=== PATIENT | male | born 1950 | race Caucasian/White ===

== ENCOUNTER 2016-03-29 12:33 | Observation (INO) | payer OTHER ==
[~2016-03-29] VITALS: Ht 182.9 cm; Wt 91.3 kg
[~2016-03-29 12:33] MED LIST: ACETAMINOPHEN325 M1 PO; ALLOPURINOL100 MG PO; AMBIEN10 MG PO; AMLODIPINE BESYL5 MG; AMLODIPINE BESYL5 MG PO; ASPIR 8181 M1 PO; ASPIR-LOW81 MG PO; ASPIR-TRIN325 M1 PO; ASPIRIN325 MG PO; ASPIRIN81 M1 PO; ATHENOL325 MG PO; ATORVASTATIN CA20 MG PO; ATORVASTATIN CA80 MG PO; BICALUTAMIDE50 M1 PO; CALCIO DEL MAR500 MG PO; CLOBETASOL PROP60 GM TP; CLOPIDOGREL75 MG; CLOPIDOGREL75 MG PO; COLCRYS0.6 MG PO; COUMADIN1 MG PO; CRESTOR40 MG PO; CYANOCOBALAM1000 MCG PO; DAYTIME NIGHTT PO; DESYREL 150 MG150 MG PO; DESYREL100 MG; DULCOLAX10 MG PR; Desyrel PO; Dulcolax PO; ESCITALOPRAM OX20 MG; ESCITALOPRAM OX20 MG PO; Ecotrin PO; FLEET MINERAL133 ML PR; Fioricet,Esgic,Repan PO; GLIPIZIDE XL10 MG; GLIPIZIDE XL10 MG PO; GLIPIZIDE10 M1 PO; GLIPIZIDE10 MG PO; GLUCOPHAGE500 MG PO; GLUCOTROL XL10 MG PO; Glucotrol PO; HYDRALAZINE HCL50 MG PO; IMDUR60 MG PO; INSULIN ASPART PROTAMINE SC; INSULIN ASPART SC; ISOSORB MONO TAB 60M; ISOSORBIDE MONO60 MG PO; JANUVIA100 MG PO; KEFLEX500 MG PO; KENALOG,ARISTOC80 GM TP; LANTUS 3 M100 UNITS1 SC; LASIX20 MG PO; LEVEMIR FL100 UNIT/1 SC; LEVEMIR FL100 UNITS/ SC; LEVEMIR100 UNIT/2 SC; LEXAPRO20 MG PO; LIDOCAINE700 MG TD; LIPITOR20 MG PO; LISINOPRIL10 MG PO; LISINOPRIL20 MG PO; LISINOPRIL40 MG; LISINOPRIL40 MG PO; LITE COAT ASPI325 M1 PO; LO-DOSE ASPIRIN81 M1 PO; LOPRESSOR100 M1 PO; LOPRESSOR50 MG PO; LYRICA75 MG PO; Lexapro PO; Lopressor PO; METFORMIN HCL1000 MG PO; METOPROLOL SUC100 MG PO; METOPROLOL SUCC50 MG PO; METOPROLOL TAR100 MG; METOPROLOL TAR100 MG PO; METOPROLOL TART50 MG PO; MILK OF MAGN PO; MYCOSTATIN15 GM PO; NEURONTIN300 MG PO; NITROGLYCERIN 2% TD; NITROSTAT,NITR0.4 M1 SL; NITROSTAT0.4 MG SL; NORVASC10 MG PO; NORVASC5 MG PO; NOVOLIN,HU100 UNITS/ SC; NOVOLOG 70/30 SC; NOVOLOG MI100 UNIT/2 SQ; NOVOLOG MI100 UNIT/M; NOVOLOG MI100 UNIT/M PO; NOVOLOG MI100 UNIT/M SC; NOVOLOG PE100 UNITS/ SC; NYSTATIN15 GM TP; Oyst-Cal D, Oscal W/ PO; PANTOPRAZOLE SO20 MG PO; PANTOPRAZOLE SO40 MG; PANTOPRAZOLE SO40 MG PO; PLAVIX75 MG PO; PRAVACHOL80 MG PO; PRAVASTATIN SOD80 MG PO; PREDNISONE10 MG PO; PRINIVIL10 MG PO; PRINIVIL20 MG PO; PRINIVIL40 MG PO; PROTONIX20 MG PO; PROTONIX40 MG PO; Protonix PO; REQUIP1 MG PO; ROBITUSSIN DM118 ML PO; ROPINIROLE HCL1 MG; ROPINIROLE HCL1 MG PO; SENOKOT S,PE1 TABLET PO; THERAGRAN1 TABLET PO; TOPROL XL100 MG PO; TRADJENTA5 MG PO; TRAMADOL HCL50 MG PO; TRAZODONE HCL100 MG PO; TRAZODONE HCL150 MG PO; TRAZODONE HCL300 MG PO; TRAZODONE HCL50 MG PO; TRICOR145 MG PO; Tums PO; Tylenol Regular Stre PO; ULORIC40 MG PO; ULTRAM50 MG PO; WARFARIN SODIU7.5 MG PO; WARFARIN SODIUM4 MG PO; XIFAXAN550 MG PO; ZESTRIL,PRINIVI40 MG PO; ZESTRIL20 MG PO; Zestril,Prinivil PO
[2016-03-29 13:40] LABS: HEMATOCRIT 43.3 % (38.0-50.0); MCH 28.9 PG (29.0-34.0); MCHC 33.3 G/DL (30.0-36.0); MCV 86.9 FL (86-99); MEAN PLAT.VOLUME 9.9 uM^3 (9.0-12.4); PLATELET COUNT 197 K/uL (156-360); RBC DIS.WIDTH-CV 15.1 % (11.8-14.6); RBC DIS.WIDTH-SD 47.9 % (39-53); RED BLOOD COUNT 4.98 M/uL (4.00-5.50)
[2016-03-29 13:41] LABS: WHITE BLOOD COUNT 11.8 K/uL (4.1-10.2)
[2016-03-29 13:54] LABS: CHLORIDE 98 mEq/L (99-109); POTASSIUM 4.2 mEq/L (3.7-5.4); SODIUM 139 mEq/L (136-147)
[2016-03-29 13:55] LABS: GLUCOSE 254 mg/dL (70-99)
[2016-03-29 13:57] LABS: ANION GAP 13 MEQ/L (2-14)
[2016-03-29 13:59] LABS: GFR ESTIMATE (CALCULATED) > 59 mL/min/
[2016-03-29 14:00] LABS: UREA NITROGEN (BUN) 17 mg/dL (9-23)
[2016-03-29 14:07] LABS: TROP-I INTERPRETATION NEGATIVE; TROPONIN-I < 0.01 ng/mL (0.0-0.30)
[2016-03-29 18:15] VITALS: BP 141/75
[2016-03-29 18:38] LABS: INFLUENZA A VIRAL ANTIGEN NEGATIVE; INFLUENZA B VIRAL ANTIGEN NEGATIVE
[2016-03-29 20:46] VITALS: BP 107/65
[2016-03-29 21:14] LABS: INTER. NORMALIZED RATIO 1.1; PROTHROMBIN TIME 11.2 (9.2-11.2)
[2016-03-29 22:31] LABS: TROP-I INTERPRETATION NEGATIVE; TROPONIN-I < 0.01 ng/mL (0.0-0.30)
[2016-03-30] VITALS (7 sets, daily range): BP systolic 121–189; BP diastolic 63–91
[2016-03-30 05:57] LABS: HEMATOCRIT 40.6 % (38.0-50.0); MCH 29.1 PG (29.0-34.0); MCV 88.3 FL (86-99); PLATELET COUNT 154 K/uL (156-360); RBC DIS.WIDTH-CV 15.3 % (11.8-14.6); RBC DIS.WIDTH-SD 49.4 % (39-53); WHITE BLOOD COUNT 9.6 K/uL (4.1-10.2)
[2016-03-30 06:15] LABS: INTER. NORMALIZED RATIO 1.1; PROTHROMBIN TIME 11.3 (9.2-11.2)
[2016-03-30 06:21] LABS: TROP-I INTERPRETATION NEGATIVE; TROPONIN-I < 0.01 ng/mL (0.0-0.30)
[2016-03-30 06:26] LABS: ANION GAP 11 MEQ/L (2-14); CHLORIDE 99 MEQ/L (99-109); GFR ESTIMATE (CALCULATED) > 59 mL/min/; GLUCOSE 197 mg/dL (70-99); POTASSIUM 3.6 MEQ/L (3.7-5.4); SAMPLE HEMOLYSIS CHECK 0; SAMPLE ICTERIC CHECK 0; SAMPLE LIPEMIA CHECK 0; SODIUM 138 MEQ/L (136-147); URIC ACID 8.8 mg/dL (3.1-9.2)
[2016-03-30 06:27] LABS: UREA NITROGEN (BUN) 29 mg/dL (9-23)
[2016-03-30 12:41] LABS: POINT-OF-CARE METER ID UU13113831; POINT-OF-CARE USER ID HCCJMZ81
[2016-03-30 13:09] LABS: TROP-I INTERPRETATION NEGATIVE; TROPONIN-I < 0.01 ng/mL (0.0-0.30)
[2016-03-30 15:56] LABS: Estimated Average Glucose 166 mg/dL (70-123); HEMOGLOBIN A1c (GLYCOHEMOGLOB) 7.4 % HGB (Below 5.7)
[2016-03-30 17:57] LABS: POINT-OF-CARE METER ID UU14162513
[2016-03-30 18:26] LABS: TROP-I INTERPRETATION NEGATIVE; TROPONIN-I < 0.01 ng/mL (0.0-0.30)
[2016-03-30 22:39] LABS: ADD MIUA? YES; BILIRUBIN NEGATIVE; BLOOD MODERATE; COLOR YELLOW ((YELLOW)); GLUCOSE (STRIP) 100; KETONES NEGATIVE; LEUKOCYTES NEGATIVE; NITRITE NEGATIVE; PH, URINE 5.5 (5-8); PROTEIN (STRIP) 100; SPECIFIC GRAVITY 1.022 (1.000-1.030)
[2016-03-30 22:39] LABS: POINT-OF-CARE METER ID UU14162513
[2016-03-30 22:42] LABS: BACTERIA NONE SEEN; CASTS NONE SEEN /LPF; CRYSTALS NONE SEEN; EPITHELIAL CELLS RARE; MUCUS NONE SEEN; PATHOLOGICAL CAST NONE SEEN; RED BLOOD CELLS 0-5 /HPF (0-5); SMALL ROUND CELL NONE SEEN; UCUL ADDED? NO; WHITE BLOOD CELLS 0-5 /HPF (0-5); YEAST-LIKE CELL NONE SEEN
[2016-03-31] VITALS (8 sets, daily range): BP systolic 160–205; BP diastolic 70–95
[2016-03-31 06:39] LABS: INTER. NORMALIZED RATIO 1.1; PROTHROMBIN TIME 11.7 (9.2-11.2)
[2016-03-31 06:48] LABS: ANION GAP 12 MEQ/L (2-14); CHLORIDE 96 MEQ/L (99-109); GFR ESTIMATE (CALCULATED) > 59 mL/min/; GLUCOSE 164 mg/dL (70-99); POTASSIUM 3.7 MEQ/L (3.7-5.4); SAMPLE HEMOLYSIS CHECK 0; SAMPLE ICTERIC CHECK 0; SAMPLE LIPEMIA CHECK 0; SODIUM 139 MEQ/L (136-147); UREA NITROGEN (BUN) 19 mg/dL (9-23)
[2016-03-31 08:19] LABS: URIC ACID 8.2 mg/dL (3.1-9.2)
[2016-03-31 08:59] LABS: POINT-OF-CARE METER ID UU14162513
[2016-03-31 12:34] LABS: POINT-OF-CARE METER ID UU14162513
[2016-03-31 17:48] LABS: POINT-OF-CARE METER ID UU14162513
[2016-03-31 21:56] LABS: POINT-OF-CARE METER ID UU14162513
[2016-04-01 05:22] VITALS: BP 174/72
[2016-04-01 07:03] LABS: INTER. NORMALIZED RATIO 1.3
[2016-04-01 07:43] LABS: POINT-OF-CARE METER ID UU13113831
[2016-04-01 08:12] VITALS: BP 178/88
[2016-04-01 11:46] VITALS: BP 165/78
[2016-04-01 16:17] VITALS: BP 165/85
[2016-04-01 17:31] LABS: POINT-OF-CARE METER ID UU13113831
[2016-04-01 19:36] VITALS: BP 160/84
[2016-04-01 21:28] LABS: POINT-OF-CARE METER ID UU13113700
[2016-04-02 00:12] VITALS: BP 140/76
[2016-04-02 04:34] VITALS: BP 138/79
[2016-04-02 06:16] LABS: INTER. NORMALIZED RATIO 1.6; PROTHROMBIN TIME 16.1 (9.2-11.2)
[2016-04-02 06:49] LABS: ANION GAP 8 MEQ/L (2-14); CHLORIDE 99 MEQ/L (99-109); GFR ESTIMATE (CALCULATED) > 59 mL/min/; SAMPLE HEMOLYSIS CHECK 0; SAMPLE ICTERIC CHECK 0; SAMPLE LIPEMIA CHECK 0; SODIUM 137 MEQ/L (136-147)
[2016-04-02 07:04] LABS: GLUCOSE 269 mg/dL (70-99); UREA NITROGEN (BUN) 35 mg/dL (9-23)
[2016-04-02 08:00] VITALS: BP 181/81
[2016-04-02 12:00] VITALS: BP 133/94
[2016-04-02 16:00] VITALS: BP 180/81
[2016-04-02 21:05] LABS: POINT-OF-CARE METER ID UU13113700
[2016-04-02 21:29] VITALS: BP 151/80
[2016-04-03] VITALS (9 sets, daily range): BP systolic 132–188; BP diastolic 70–103
[2016-04-03 07:14] LABS: PROTHROMBIN TIME 20.7 (9.2-11.2)
[2016-04-03 08:53] LABS: POINT-OF-CARE METER ID UU13113831
[2016-04-03 12:37] LABS: POINT-OF-CARE METER ID UU14162513
[2016-04-03 17:26] LABS: POINT-OF-CARE METER ID UU14162513
[2016-04-03 21:53] LABS: POINT-OF-CARE METER ID UU14162513
[2016-04-04 04:15] VITALS: BP 132/68
[2016-04-04 06:25] LABS: INTER. NORMALIZED RATIO 1.9; PROTHROMBIN TIME 19.7 (9.2-11.2)
[2016-04-04 06:40] LABS: ANION GAP 9 MEQ/L (2-14); CHLORIDE 100 MEQ/L (99-109); GFR ESTIMATE (CALCULATED) > 59 mL/min/; GLUCOSE 212 mg/dL (70-99); POTASSIUM 3.9 MEQ/L (3.7-5.4); SAMPLE HEMOLYSIS CHECK 0; SAMPLE ICTERIC CHECK 0; SAMPLE LIPEMIA CHECK 0; SODIUM 138 MEQ/L (136-147); UREA NITROGEN (BUN) 30 mg/dL (9-23)
[2016-04-04 08:17] VITALS: BP 193/90
[2016-04-04 08:47] VITALS: BP 158/74
[2016-04-04 10:02] LABS: POINT-OF-CARE METER ID UU13113700
[2016-04-04 12:26] VITALS: BP 125/76
[2016-04-04 12:35] LABS: POINT-OF-CARE METER ID UU13113700
[2016-04-04] MEDS ORDERED: Colchicine,Colcrys PO (14:49)
[2016-04-04] MEDS ORDERED: LYRICA75 MG PO (14:49)
[2016-04-04] MEDS ORDERED: ROPINIROLE HCL0.5 MG PO (14:49)
[2016-04-04] MEDS ORDERED: LEVEMIR100 UNIT/2 SC (14:49)
[2016-04-04] MEDS ORDERED: NOVOLOG PE100 UNITS/ SC (14:49)
[2016-04-04] MEDS ORDERED: TRAZODONE HCL50 MG PO (14:49)
[2016-04-04] MEDS ORDERED: GABAPENTIN100 MG PO (14:49)
[2016-04-04] MEDS ORDERED: COUMADIN2 MG PO (14:49)
[2016-04-04] MEDS ORDERED: LISINOPRIL10 MG PO (14:49)
[2016-04-04] MEDS ORDERED: ASPIR-LOW81 MG PO (14:49)
[2016-04-04] MEDS ORDERED: IMDUR30 MG PO (14:49)
[2016-04-04] MEDS ORDERED: LOPRESSOR50 MG PO (14:49)
[2016-04-04] MEDS ORDERED: ATORVASTATIN CA80 MG PO (14:49)
[2016-04-04] MEDS ORDERED: NITROSTAT0.4 MG SL (14:49)
[2016-04-04] MEDS ORDERED: CLOPIDOGREL75 MG PO (14:49)
[2016-04-04 16:03] VITALS: BP 143/68
[2016-04-04 16:26] LABS: POINT-OF-CARE METER ID UU14162513
== END 2016-04-04 18:20 ==
LOC: EME 12:33 → 5WEST 15:41 → EDOF 15:41 → 5WEST 18:01
PROVIDERS: Hospitalist; Internal Medicine; Internal Medicine Cardiovascular Disease; Nurse Practitioner Adult Health; Physician Assistant Medical; Specialist
PROC: 3E0U33Z Introduction of Anti-inflammatory into Joints, Percutaneous Approach (ICD-10-PCS; principal; 2016-03-31)
PROC: 0S9D3ZX Drainage of Left Knee Joint, Percutaneous Approach, Diagnostic (ICD-10-PCS; principal; 2016-03-31)
DX: R07.2 Precordial pain (principal); M62.81 Muscle weakness (generalized); M25.562 Pain in left knee; M25.462 Effusion, left knee; M10.9 Gout, unspecified; E78.2 Mixed hyperlipidemia; I25.10 Atherosclerotic heart disease of native coronary artery without angina pectoris; Z95.1 Presence of aortocoronary bypass graft; R94.31 Abnormal electrocardiogram [ECG] [EKG]; I10 Essential (primary) hypertension; E11.9 Type 2 diabetes mellitus without complications; Z79.4 Long term (current) use of insulin; Z86.73 Personal history of transient ischemic attack (TIA), and cerebral infarction without residual deficits; I48.0 Paroxysmal atrial fibrillation; D72.829 Elevated white blood cell count, unspecified; M17.12 Unilateral primary osteoarthritis, left knee; Z79.01 Long term (current) use of anticoagulants; Z91.19 Patient's noncompliance with other medical treatment and regimen
CPT/HCPCS: 70450; 71020; 73564; 80048; 81003; 82948; 83036; 84484; 84550; 85027; 85610; 87502; 93005; 97530 GO; 97530 GP; 99281; 99285; G0378; G8978 CL; G8979 CJ; G8980 GP CK; G8987 GO CJ; G8988 CI; G8989 CJ; J0360; J1815; J2270; J2405

== ENCOUNTER 2016-08-04 23:11 | Emergency (ER) | payer OTHER ==
[~2016-08-04] VITALS: Ht 182.9 cm; Wt 105.2 kg
[~2016-08-04 23:11] MED LIST changes: +COUMADIN2 MG PO; +Colchicine,Colcrys PO; +GABAPENTIN100 MG PO; +IMDUR30 MG PO; +ROPINIROLE HCL0.5 MG PO
[2016-08-04 23:49] LABS: HEMATOCRIT 45.2 % (38.0-50.0); MCH 28.2 PG (29.0-34.0); MCHC 32.3 G/DL (30.0-36.0); MCV 87.4 FL (86-99); MEAN PLAT.VOLUME 8.9 uM^3 (9.0-12.4); PLATELET COUNT 180 K/uL (156-360); RBC DIS.WIDTH-CV 13.7 % (11.8-14.6); RED BLOOD COUNT 5.17 M/uL (4.00-5.50)
[2016-08-05 00:01] LABS: PROTHROMBIN TIME 10.6 (9.2-11.2); PTT 26.1 (25-32)
[2016-08-05 00:02] LABS: CHLORIDE 100 mEq/L (99-109); POTASSIUM 3.8 mEq/L (3.7-5.4); SODIUM 140 mEq/L (136-147)
[2016-08-05 00:04] LABS: GLUCOSE 97 mg/dL (70-99)
[2016-08-05 00:06] LABS: ANION GAP 11 MEQ/L (2-14)
[2016-08-05 00:08] LABS: GFR ESTIMATE (CALCULATED) > 59 mL/min/
[2016-08-05 00:09] LABS: UREA NITROGEN (BUN) 24 mg/dL (9-23)
[2016-08-05 00:12] LABS: TROP-I INTERPRETATION NEGATIVE; TROPONIN-I < 0.01 ng/mL (0.0-0.30)
[2016-08-05 00:15] LABS: ADD MIUA? YES; BILIRUBIN NEGATIVE; BLOOD MODERATE; COLOR YELLOW ((YELLOW)); GLUCOSE (STRIP) NEGATIVE; KETONES NEGATIVE; LEUKOCYTES NEGATIVE; NITRITE NEGATIVE; PROTEIN (STRIP) >=500; SPECIFIC GRAVITY 1.013 (1.000-1.030); UROBILINOGEN 0.2 MG/DL (0.2-1.0)
[2016-08-05 00:21] LABS: BACTERIA NONE SEEN /HPF; EPITHELIAL CELLS RARE /HPF; MUCUS NONE SEEN /LPF; RED BLOOD CELLS 0-5 /HPF (0-5); UCUL ADDED? NO; WHITE BLOOD CELLS 0-5 /HPF (0-5)
[2016-08-05 05:09] VITALS: BP 153/88
== END 2016-08-05 05:13 | disposition home or self-care (01) ==
LOC: EME → EDBD 23:11 → EME 08-05 05:13
PROVIDERS: Emergency Medicine
DX: S00.93XA Contusion of unspecified part of head, initial encounter (principal); W01.10XA Fall on same level from slipping, tripping and stumbling with subsequent striking against unspecified object, initial encounter; M54.9 Dorsalgia, unspecified; Z86.73 Personal history of transient ischemic attack (TIA), and cerebral infarction without residual deficits; I11.0 Hypertensive heart disease with heart failure; I50.9 Heart failure, unspecified; E11.9 Type 2 diabetes mellitus without complications; J44.9 Chronic obstructive pulmonary disease, unspecified; E78.5 Hyperlipidemia, unspecified; I25.2 Old myocardial infarction; K21.9 Gastro-esophageal reflux disease without esophagitis; F32.9 Major depressive disorder, single episode, unspecified; Z85.46 Personal history of malignant neoplasm of prostate; Z95.1 Presence of aortocoronary bypass graft; R31.9 Hematuria, unspecified; R53.1 Weakness; R42 Dizziness and giddiness
CPT/HCPCS: 70450; 72125; 80048; 81003; 84484; 85027; 85610; 85730; 93005; 99281; 99285

== ENCOUNTER 2016-08-24 13:09 | Emergency (ER) | payer OTHER ==
[~2016-08-24] VITALS: Ht 182.9 cm; Wt 105.1 kg
[2016-08-24 14:48] LABS: HEMATOCRIT 47.3 % (38.0-50.0); MCH 27.2 PG (29.0-34.0); MCHC 31.1 G/DL (30.0-36.0); MCV 87.4 FL (86-99); MEAN PLAT.VOLUME 9.2 uM^3 (9.0-12.4); PLATELET COUNT 161 K/uL (156-360); RBC DIS.WIDTH-SD 44.6 % (39-53); RED BLOOD COUNT 5.41 M/uL (4.00-5.50); WHITE BLOOD COUNT 7.3 K/uL (4.1-10.2)
[2016-08-24 14:58] LABS: CHLORIDE 105 mEq/L (99-109); POTASSIUM 4.1 mEq/L (3.7-5.4); SODIUM 142 mEq/L (136-147)
[2016-08-24 14:59] LABS: GLUCOSE 184 mg/dL (70-99)
[2016-08-24 15:01] LABS: PROTHROMBIN TIME 10.6 (9.2-11.2); PTT 25.5 (25-32)
[2016-08-24 15:01] LABS: ANION GAP 8 MEQ/L (2-14)
[2016-08-24 15:03] LABS: GFR ESTIMATE (CALCULATED) > 59 mL/min/
[2016-08-24 15:04] LABS: UREA NITROGEN (BUN) 16 mg/dL (9-23)
[2016-08-24 15:07] LABS: TROP-I INTERPRETATION NEGATIVE; TROPONIN-I < 0.01 ng/mL (0.0-0.30)
[2016-08-24 15:50] LABS: TOTAL BILIRUBIN 0.5 mg/dL (0.0-1.0)
[2016-08-24 15:51] LABS: ALKALINE PHOSPHATASE 59 IU/L (3-129)
[2016-08-24 15:53] LABS: DIRECT BILIRUBIN 0.2 mg/dL (0.0-0.3)
[2016-08-24 15:55] LABS: LIPASE 51 U/L (1.0-51.0)
[2016-08-24 18:15] VITALS: BP 187/93
== END 2016-08-24 18:33 | disposition home or self-care (01) ==
LOC: EME → EDBD 13:09 → EME 13:09
PROVIDERS: Emergency Medicine
DX: E86.0 Dehydration (principal); R55 Syncope and collapse; R10.9 Unspecified abdominal pain; I25.2 Old myocardial infarction; Z86.73 Personal history of transient ischemic attack (TIA), and cerebral infarction without residual deficits; Z95.1 Presence of aortocoronary bypass graft
CPT/HCPCS: 71020; 74176; 80048; 80076; 83690; 83880; 84484; 85027; 85610; 85730; 93005; 99281; 99285

== ENCOUNTER 2016-10-06 20:30 | Observation (INO) | payer OTHER ==
[~2016-10-06] VITALS: Ht 182.9 cm; Wt 104.4 kg
[2016-10-06 21:42] LABS: HEMATOCRIT 43.8 % (38.0-50.0); MCHC 32.4 G/DL (30.0-36.0); MCV 83.4 FL (86-99); MEAN PLAT.VOLUME 9.1 uM^3 (9.0-12.4); PLATELET COUNT 155 K/uL (156-360); RBC DIS.WIDTH-CV 14.3 % (11.8-14.6); RBC DIS.WIDTH-SD 43.2 % (39-53); RED BLOOD COUNT 5.25 M/uL (4.00-5.50); WHITE BLOOD COUNT 8.1 K/uL (4.1-10.2)
[2016-10-06 21:53] LABS: CHLORIDE 101 mEq/L (99-109); POTASSIUM 4.3 mEq/L (3.7-5.4)
[2016-10-06 21:54] LABS: SODIUM 139 mEq/L (136-147)
[2016-10-06 21:55] LABS: GLUCOSE 235 mg/dL (70-99)
[2016-10-06 21:57] LABS: ANION GAP 9 MEQ/L (2-14)
[2016-10-06 21:59] LABS: GFR ESTIMATE (CALCULATED) > 59 mL/min/
[2016-10-06 22:00] LABS: UREA NITROGEN (BUN) 19 mg/dL (9-23)
[2016-10-06 22:04] LABS: TROP-I INTERPRETATION NEGATIVE; TROPONIN-I < 0.01 ng/mL (0.0-0.30)
[2016-10-07] MEDS ORDERED: ISOSORBIDE MONO60 MG PO (00:22)
[2016-10-07] MEDS ORDERED: PRAVASTATIN SOD80 MG PO (00:22)
[2016-10-07] MEDS ORDERED: METOPROLOL TAR100 MG PO (00:22)
[2016-10-07] MEDS ORDERED: PLAVIX75 MG PO (00:22)
[2016-10-07] MEDS ORDERED: LO-DOSE ASPIRIN81 M2 PO (00:23)
[2016-10-07] MEDS ORDERED: REQUIP1 MG PO (00:23)
[2016-10-07] MEDS ORDERED: TRAZODONE HCL150 MG PO (00:23)
[2016-10-07] MEDS ORDERED: LISINOPRIL20 MG PO (00:23)
[2016-10-07] MEDS ORDERED: LANTUS 3 M100 UNITS1 SC (00:24)
[2016-10-07] MEDS ORDERED: TRADJENTA5 MG PO (00:25)
[2016-10-07] MEDS ORDERED: PROTONIX40 MG PO (00:25)
[2016-10-07] MEDS ORDERED: LEXAPRO20 MG PO (00:25)
[2016-10-07 04:33] VITALS: BP 166/72
[2016-10-07 06:04] LABS: HEMATOCRIT 42.5 % (38.0-50.0); MCH 26.6 PG (29.0-34.0); MCHC 31.8 G/DL (30.0-36.0); MCV 83.7 FL (86-99); MEAN PLAT.VOLUME 9.2 uM^3 (9.0-12.4); PLATELET COUNT 148 K/uL (156-360); RBC DIS.WIDTH-CV 14.3 % (11.8-14.6); RBC DIS.WIDTH-SD 43.5 % (39-53); RED BLOOD COUNT 5.08 M/uL (4.00-5.50)
[2016-10-07 06:34] LABS: TROP-I INTERPRETATION NEGATIVE; TROPONIN-I 0.02 ng/mL (0.0-0.30)
[2016-10-07 06:38] LABS: ALKALINE PHOSPHATASE 67 IU/L (3-129); ANION GAP 7 MEQ/L (2-14); CHLORIDE 100 MEQ/L (99-109); GFR ESTIMATE (CALCULATED) > 59 mL/min/; GLUCOSE 253 mg/dL (70-99); POTASSIUM 4.1 MEQ/L (3.7-5.4); SAMPLE HEMOLYSIS CHECK 0; SAMPLE ICTERIC CHECK 0; SAMPLE LIPEMIA CHECK 0; SODIUM 141 MEQ/L (136-147); TOTAL BILIRUBIN 0.5 MG/DL (0.0-1.0); UREA NITROGEN (BUN) 19 mg/dL (9-23)
[2016-10-07 09:00] VITALS: BP 193/93
[2016-10-07 11:07] LABS: SALICYLATE < 3.0 MG/DL (15-30)
[2016-10-07 11:30] LABS: TROP-I INTERPRETATION NEGATIVE; TROPONIN-I 0.02 ng/mL (0.0-0.30)
[2016-10-07 13:12] VITALS: BP 151/84
[2016-10-07 13:34] LABS: ADD MIUA? YES; BILIRUBIN NEGATIVE; BLOOD SMALL; COLOR YELLOW ((YELLOW)); GLUCOSE (STRIP) 150; KETONES NEGATIVE; LEUKOCYTES NEGATIVE; NITRITE NEGATIVE; PROTEIN (STRIP) 100; SPECIFIC GRAVITY 1.018 (1.000-1.030); UROBILINOGEN 0.2 MG/DL (0.2-1.0)
[2016-10-07 13:52] LABS: RED BLOOD CELLS 0-5 /HPF (0-5); WHITE BLOOD CELLS 0-5 /HPF (0-5)
[2016-10-07 13:53] LABS: BACTERIA NONE SEEN /HPF; EPITHELIAL CELLS NONE SEEN /HPF; MUCUS NONE SEEN /LPF; UCUL ADDED? NO
[2016-10-07 14:03] LABS: AMPHETAMINES QUANT VALUE 0 NG/ML; BARBITUATES QUANT VALUE 0 NG/ML; BENZODIAZEPINES QUANT VALUE 0 NG/ML; BENZODIAZEPINES, URINE SCREEN Negative (200 ng/mL); MARIJUANA QUANT VALUE 0 NG/ML; OPIATES QUANTITATIVE VALUE 0 NG/ML; PHENCYCLIDINE QUANT VALUE 0 NG/ML
[2016-10-07 15:59] VITALS: BP 194/89
[2016-10-07 17:30] LABS: POINT-OF-CARE METER ID UU14162513
[2016-10-07 17:57] VITALS: BP 191/91
[2016-10-07 19:52] VITALS: BP 174/80
[2016-10-07 20:58] LABS: POINT-OF-CARE METER ID UU13113700
[2016-10-08 00:03] VITALS: BP 170/78
[2016-10-08 05:00] VITALS: BP 166/70
[2016-10-08 05:53] LABS: BASOPHIL COUNT 0.1 K/uL (0-0.1); EOSINOPHIL (%) 1.3 % (0-5); EOSINOPHIL COUNT 0.1 K/uL (0-0.3); IMMATURE GRANULOCYTE (%) 0.6 % (0.0-0.7); LYMPHOCYTE COUNT 2.3 K/uL (1.0-2.8); MCH 27.1 PG (29.0-34.0); MCHC 32.1 G/DL (30.0-36.0); MCV 84.5 FL (86-99); MEAN PLAT.VOLUME 9.4 uM^3 (9.0-12.4); MONOCYTE COUNT 0.7 K/uL (0-0.8); PLATELET COUNT 160 K/uL (156-360); RBC DIS.WIDTH-CV 14.7 % (11.8-14.6); RBC DIS.WIDTH-SD 44.8 % (39-53); RED BLOOD COUNT 5.09 M/uL (4.00-5.50); WHITE BLOOD COUNT 6.2 K/uL (4.1-10.2)
[2016-10-08 06:14] LABS: ANION GAP 9 MEQ/L (2-14); CHLORIDE 99 MEQ/L (99-109); GFR ESTIMATE (CALCULATED) > 59 mL/min/; GLUCOSE 164 mg/dL (70-99); POTASSIUM 3.8 MEQ/L (3.7-5.4); SAMPLE HEMOLYSIS CHECK 0; SAMPLE ICTERIC CHECK 0; SAMPLE LIPEMIA CHECK 0; SODIUM 140 MEQ/L (136-147); UREA NITROGEN (BUN) 19 mg/dL (9-23)
[2016-10-08 08:45] VITALS: BP 162/86
[2016-10-08 11:23] VITALS: BP 132/69
[2016-10-08 15:38] VITALS: BP 153/77
[2016-10-08 19:30] VITALS: BP 175/82
[2016-10-08 21:34] LABS: POINT-OF-CARE METER ID UU14162513
[2016-10-09 00:03] VITALS: BP 198/91
[2016-10-09 03:55] VITALS: BP 189/88
[2016-10-09 05:12] VITALS: BP 137/80
[2016-10-09 05:41] LABS: EOSINOPHIL (%) 0.6 % (0-5); EOSINOPHIL COUNT 0.1 K/uL (0-0.3); HEMATOCRIT 46.3 % (38.0-50.0); IMMATURE GRANULOCYTE (%) 0.5 % (0.0-0.7); IMMATURE GRANULOCYTE COUNT 0.1 K/uL; INSTRUMENT ABS NEUTROPHIL CT 6.1 K/uL; LYMPHOCYTE COUNT 2.4 K/uL (1.0-2.8); MCH 26.4 PG (29.0-34.0); MCHC 31.5 G/DL (30.0-36.0); MCV 83.6 FL (86-99); MEAN PLAT.VOLUME 9.3 uM^3 (9.0-12.4); MONOCYTE (%) 8.7 % (3-12); MONOCYTE COUNT 0.8 K/uL (0-0.8); NEUTROPHIL (%) 64.9 % (45-76); NEUTROPHIL COUNT 6.1 K/uL (1.8-6.4); PLATELET COUNT 170 K/uL (156-360); RBC DIS.WIDTH-CV 14.7 % (11.8-14.6); RBC DIS.WIDTH-SD 44.6 % (39-53); RED BLOOD COUNT 5.54 M/uL (4.00-5.50); WHITE BLOOD COUNT 9.5 K/uL (4.1-10.2)
[2016-10-09 06:14] LABS: ANION GAP 9 MEQ/L (2-14); CHLORIDE 99 MEQ/L (99-109); POTASSIUM 3.8 MEQ/L (3.7-5.4); SAMPLE HEMOLYSIS CHECK 0; SAMPLE ICTERIC CHECK 0; SAMPLE LIPEMIA CHECK 0; SODIUM 137 MEQ/L (136-147)
[2016-10-09 06:19] LABS: GFR ESTIMATE (CALCULATED) > 59 mL/min/; GLUCOSE 177 mg/dL (70-99); UREA NITROGEN (BUN) 18 mg/dL (9-23)
[2016-10-09 07:10] VITALS: BP 159/72
[2016-10-09 11:49] LABS: POINT-OF-CARE METER ID UU13113700
[2016-10-09 17:16] LABS: POINT-OF-CARE METER ID UU13113700
[2016-10-09 20:00] VITALS: BP 162/80
[2016-10-09 22:19] LABS: POINT-OF-CARE METER ID UU13113700
[2016-10-10 04:11] VITALS: BP 141/77
[2016-10-10 06:03] LABS: EOSINOPHIL COUNT 0.1 K/uL (0-0.3); HEMATOCRIT 44.5 % (38.0-50.0); IMMATURE GRANULOCYTE (%) 0.5 % (0.0-0.7); INSTRUMENT ABS NEUTROPHIL CT 4.3 K/uL; LYMPHOCYTE COUNT 2.6 K/uL (1.0-2.8); MCH 26.8 PG (29.0-34.0); MCHC 31.7 G/DL (30.0-36.0); MCV 84.6 FL (86-99); MEAN PLAT.VOLUME 9.1 uM^3 (9.0-12.4); MONOCYTE (%) 11.6 % (3-12); MONOCYTE COUNT 0.9 K/uL (0-0.8); NEUTROPHIL (%) 53.6 % (45-76); NEUTROPHIL COUNT 4.3 K/uL (1.8-6.4); PLATELET COUNT 150 K/uL (156-360); RBC DIS.WIDTH-SD 45.5 % (39-53); RED BLOOD COUNT 5.26 M/uL (4.00-5.50)
[2016-10-10 06:33] LABS: ANION GAP 8 MEQ/L (2-14); CHLORIDE 100 MEQ/L (99-109); GFR ESTIMATE (CALCULATED) > 59 mL/min/; GLUCOSE 197 mg/dL (70-99); POTASSIUM 3.8 MEQ/L (3.7-5.4); SAMPLE HEMOLYSIS CHECK 0; SAMPLE ICTERIC CHECK 0; SAMPLE LIPEMIA CHECK 0; SODIUM 141 MEQ/L (136-147); UREA NITROGEN (BUN) 23 mg/dL (9-23)
[2016-10-10 08:02] LABS: POINT-OF-CARE METER ID UU13113700
[2016-10-10 08:04] VITALS: BP 168/100
[2016-10-10 12:04] VITALS: BP 159/76
[2016-10-10] MEDS ORDERED: ELIQUIS5 MG PO (12:05)
== END 2016-10-10 15:06 ==
LOC: EME 20:30 → 5WEST 10-07 02:52 → EDOF 10-07 02:52 → 5WEST 10-07 04:00
PROVIDERS: Family Medicine; Internal Medicine
DX: R07.9 Chest pain, unspecified (principal); I48.0 Paroxysmal atrial fibrillation; E78.5 Hyperlipidemia, unspecified; Z86.73 Personal history of transient ischemic attack (TIA), and cerebral infarction without residual deficits; E11.9 Type 2 diabetes mellitus without complications; I25.10 Atherosclerotic heart disease of native coronary artery without angina pectoris; Z95.1 Presence of aortocoronary bypass graft; R41.0 Disorientation, unspecified; R94.31 Abnormal electrocardiogram [ECG] [EKG]; T45.516A Underdosing of anticoagulants, initial encounter; Z91.128 Patient's intentional underdosing of medication regimen for other reason; Z82.49 Family history of ischemic heart disease and other diseases of the circulatory system; I71.2 Thoracic aortic aneurysm, without rupture; I10 Essential (primary) hypertension; J44.9 Chronic obstructive pulmonary disease, unspecified; G47.33 Obstructive sleep apnea (adult) (pediatric); R63.3 Feeding difficulties; I25.2 Old myocardial infarction
CPT/HCPCS: 70450; 71020; 80048; 80053; 80306 90; 81003; 82140; 82607; 82746; 82948; 84443; 84484; 85025; 85027; 93005; 99281; 99285; G0378; G0480; G8978 GP CJ; G8979 GP CH; G8987 GO CJ; G8988 GO CH; J0360; J1650; J1815

== ENCOUNTER → 2016-11-06 | Outpatient (CLI) | payer OTHER ==
[~2016-11-06] MED LIST changes: +ELIQUIS5 MG PO; +LO-DOSE ASPIRIN81 M2 PO
== END | disposition home or self-care (01) ==
LOC: RAD 09:58
DX: G93.89 Other specified disorders of brain (principal)
CPT/HCPCS: 70450

== ENCOUNTER 2016-12-08 14:25 | Emergency (ER) | payer OTHER ==
[~2016-12-08] VITALS: Ht 182.9 cm; Wt 105.5 kg
[2016-12-08 15:37] LABS: ADD MIUA? YES; BILIRUBIN NEGATIVE; BLOOD SMALL; COLOR YELLOW ((YELLOW)); GLUCOSE (STRIP) 50; KETONES NEGATIVE; LEUKOCYTES NEGATIVE; NITRITE NEGATIVE; PROTEIN (STRIP) >=500; SPECIFIC GRAVITY 1.023 (1.000-1.030); UROBILINOGEN 0.2 MG/DL (0.2-1.0)
[2016-12-08 15:52] LABS: BACTERIA NONE SEEN /HPF; EPITHELIAL CELLS RARE /HPF; HYALINE CASTS TNTC /LPF; MUCUS TRACE /LPF; WHITE BLOOD CELLS 0-5 /HPF (0-5); WHITE BLOOD CELLS CLUMP RARE /HPF (0-5)
[2016-12-08 16:00] LABS: HEMATOCRIT 43.7 % (38.0-50.0); MCH 26.9 PG (29.0-34.0); MCHC 31.4 G/DL (30.0-36.0); MCV 85.9 FL (86-99); MEAN PLAT.VOLUME 9.4 uM^3 (9.0-12.4); PLATELET COUNT 173 K/uL (156-360); RBC DIS.WIDTH-SD 46.9 % (39-53); RED BLOOD COUNT 5.09 M/uL (4.00-5.50); WHITE BLOOD COUNT 7.5 K/uL (4.1-10.2)
[2016-12-08 16:16] LABS: CHLORIDE 101 mEq/L (99-109); POTASSIUM 4.3 mEq/L (3.7-5.4); SODIUM 139 mEq/L (136-147)
[2016-12-08 16:18] LABS: GLUCOSE 282 mg/dL (70-99)
[2016-12-08 16:20] LABS: ANION GAP 10 MEQ/L (2-14); TOTAL BILIRUBIN 0.4 mg/dL (0.0-1.0)
[2016-12-08 16:22] LABS: ALKALINE PHOSPHATASE 81 IU/L (3-129); GFR ESTIMATE (CALCULATED) > 59 mL/min/
[2016-12-08 16:23] LABS: UREA NITROGEN (BUN) 21 mg/dL (9-23)
[2016-12-08 19:13] VITALS: BP 149/83
== END 2016-12-08 19:14 | disposition home or self-care (01) ==
LOC: EME 14:25
PROVIDERS: Physician Assistant
DX: R10.30 Lower abdominal pain, unspecified (principal); I10 Essential (primary) hypertension; K21.9 Gastro-esophageal reflux disease without esophagitis; J44.9 Chronic obstructive pulmonary disease, unspecified; E78.5 Hyperlipidemia, unspecified; E11.9 Type 2 diabetes mellitus without complications; I25.2 Old myocardial infarction; Z85.528 Personal history of other malignant neoplasm of kidney; Z85.46 Personal history of malignant neoplasm of prostate; Z85.038 Personal history of other malignant neoplasm of large intestine; Z86.73 Personal history of transient ischemic attack (TIA), and cerebral infarction without residual deficits; Z79.4 Long term (current) use of insulin; Z79.82 Long term (current) use of aspirin; Z95.1 Presence of aortocoronary bypass graft; Z90.5 Acquired absence of kidney
CPT/HCPCS: 74177; 80053; 81003; 85027; 99281; 99285; J7040

== ENCOUNTER 2017-02-14 12:31 | Emergency (ER) | payer OTHER ==
[~2017-02-14] VITALS: Ht 185.4 cm; Wt 105.0 kg
[2017-02-14] MEDS ORDERED: CLOPIDOGREL75 MG PO (13:36)
[2017-02-14 15:25] LABS: CHLORIDE 104 mEq/L (99-109); POTASSIUM 4.6 mEq/L (3.7-5.4); SODIUM 140 mEq/L (136-147)
[2017-02-14 15:26] LABS: MAGNESIUM 1.3 mg/dL (1.3-2.7)
[2017-02-14 15:28] LABS: GLUCOSE 269 mg/dL (70-99)
[2017-02-14 15:29] LABS: ANION GAP 7 MEQ/L (2-14)
[2017-02-14 15:30] LABS: TOTAL BILIRUBIN 0.3 mg/dL (0.0-1.0)
[2017-02-14 15:31] LABS: ALKALINE PHOSPHATASE 80 IU/L (3-129); GFR ESTIMATE (CALCULATED) > 59 mL/min/
[2017-02-14 15:31] LABS: ADD MIUA? YES; BILIRUBIN NEGATIVE; BLOOD SMALL; COLOR YELLOW ((YELLOW)); GLUCOSE (STRIP) 150; KETONES NEGATIVE; LEUKOCYTES NEGATIVE; NITRITE NEGATIVE; PROTEIN (STRIP) >=500; UROBILINOGEN 0.2 MG/DL (0.2-1.0)
[2017-02-14 15:33] LABS: UREA NITROGEN (BUN) 31 mg/dL (9-23)
[2017-02-14 15:34] LABS: TROP-I INTERPRETATION NEGATIVE; TROPONIN-I < 0.01 ng/mL (0.0-0.30)
[2017-02-14 15:34] LABS: CREATINE KINASE 292 IU/L (1-294); TOTAL CK 292 IU/L (1-294)
[2017-02-14 15:36] LABS: BACTERIA NONE SEEN /HPF; EPITHELIAL CELLS RARE /HPF; MUCUS TRACE /LPF; RED BLOOD CELLS 0-5 /HPF (0-5); UCUL ADDED? NO; WHITE BLOOD CELLS 0-5 /HPF (0-5)
[2017-02-14 15:41] LABS: CK-MB 16.8 ng/mL (0.0-4.9)
[2017-02-14 16:15] LABS: EOSINOPHIL COUNT 0.1 K/uL (0-0.3); HEMATOCRIT 40.7 % (38.0-50.0); IMMATURE GRANULOCYTE (%) 0.3 % (0.0-0.7); LYMPHOCYTE COUNT 2.4 K/uL (1.0-2.8); MCH 27.2 PG (29.0-34.0); MCHC 31.7 G/DL (30.0-36.0); MCV 85.9 FL (86-99); MEAN PLAT.VOLUME 9.4 uM^3 (9.0-12.4); MONOCYTE (%) 8.5 % (3-12); MONOCYTE COUNT 0.5 K/uL (0-0.8); NEUTROPHIL (%) 50.1 % (45-76); PLATELET COUNT 121 K/uL (156-360); RBC DIS.WIDTH-CV 14.5 % (11.8-14.6); RBC DIS.WIDTH-SD 45.7 % (39-53); RED BLOOD COUNT 4.74 M/uL (4.00-5.50)
[2017-02-14 18:12] VITALS: BP 151/77
== END 2017-02-14 18:12 | disposition home or self-care (01) ==
LOC: EME → EDBD 12:31 → EME 12:31
PROVIDERS: Emergency Medicine
DX: S00.03XA Contusion of scalp, initial encounter (principal); W18.30XA Fall on same level, unspecified, initial encounter; G89.29 Other chronic pain; M79.605 Pain in left leg; M79.604 Pain in right leg; I44.0 Atrioventricular block, first degree; I10 Essential (primary) hypertension; E78.5 Hyperlipidemia, unspecified; E11.9 Type 2 diabetes mellitus without complications; Z79.4 Long term (current) use of insulin; Z79.02 Long term (current) use of antithrombotics/antiplatelets; Z79.82 Long term (current) use of aspirin; Z95.1 Presence of aortocoronary bypass graft; Z86.73 Personal history of transient ischemic attack (TIA), and cerebral infarction without residual deficits; Z85.038 Personal history of other malignant neoplasm of large intestine; Z85.46 Personal history of malignant neoplasm of prostate; Z85.528 Personal history of other malignant neoplasm of kidney; Z90.5 Acquired absence of kidney
CPT/HCPCS: 70450; 71010; 80053; 81003; 82550; 82553; 83605; 83735; 83880; 84484; 85025; 93005; 99281; 99285

== ENCOUNTER 2017-02-19 15:22 | Emergency (ER) | payer OTHER ==
[~2017-02-19] VITALS: Ht 182.9 cm; Wt 106.4 kg
[2017-02-19 16:09] LABS: EOSINOPHIL COUNT 0.1 K/uL (0-0.3); IMMATURE GRANULOCYTE (%) 0.3 % (0.0-0.7); INSTRUMENT ABS NEUTROPHIL CT 3.4 K/uL; MCH 27.7 PG (29.0-34.0); MCHC 31.2 G/DL (30.0-36.0); MCV 88.8 FL (86-99); MEAN PLAT.VOLUME 9.6 uM^3 (9.0-12.4); MONOCYTE (%) 9.2 % (3-12); MONOCYTE COUNT 0.6 K/uL (0-0.8); NEUTROPHIL (%) 55.3 % (45-76); NEUTROPHIL COUNT 3.4 K/uL (1.8-6.4); PLATELET COUNT 139 K/uL (156-360); RBC DIS.WIDTH-CV 14.8 % (11.8-14.6); RED BLOOD COUNT 4.73 M/uL (4.00-5.50); WHITE BLOOD COUNT 6.1 K/uL (4.1-10.2)
[2017-02-19 16:12] LABS: CARBON DIOXIDE (BICARBONATE) 35.3 MEQ/L (20-31)
[2017-02-19 16:18] LABS: INTER. NORMALIZED RATIO 1.1
[2017-02-19 16:20] LABS: CHLORIDE 104 mEq/L (99-109); POTASSIUM 4.5 mEq/L (3.7-5.4); SODIUM 138 mEq/L (136-147)
[2017-02-19 16:21] LABS: GLUCOSE 260 mg/dL (70-99); PTT 30.2 SEC (25-37)
[2017-02-19 16:23] LABS: ANION GAP 6 MEQ/L (2-14)
[2017-02-19 16:25] LABS: GFR ESTIMATE (CALCULATED) > 59 mL/min/
[2017-02-19 16:26] LABS: UREA NITROGEN (BUN) 25 mg/dL (9-23)
[2017-02-19 16:29] LABS: TROP-I INTERPRETATION NEGATIVE
[2017-02-19 18:23] LABS: ADD MIUA? YES; BILIRUBIN NEGATIVE; BLOOD SMALL; COLOR YELLOW ((YELLOW)); GLUCOSE (STRIP) 50; KETONES NEGATIVE; LEUKOCYTES NEGATIVE; NITRITE NEGATIVE; PROTEIN (STRIP) >=500
[2017-02-19 18:37] LABS: BACTERIA RARE /HPF; EPITHELIAL CELLS RARE /HPF; HYALINE CASTS 20-30 /LPF; MUCUS 1+ /LPF; RED BLOOD CELLS 20-30 /HPF (0-5); WHITE BLOOD CELLS 0-5 /HPF (0-5)
[2017-02-19 19:23] VITALS: BP 127/73
== END 2017-02-19 19:25 | disposition home or self-care (01) ==
LOC: EME 15:22
PROVIDERS: Physician Assistant
DX: E11.65 Type 2 diabetes mellitus with hyperglycemia (principal); R51 Headache; R11.0 Nausea; R00.1 Bradycardia, unspecified; I10 Essential (primary) hypertension; E78.5 Hyperlipidemia, unspecified; Z79.84 Long term (current) use of oral hypoglycemic drugs; Z86.73 Personal history of transient ischemic attack (TIA), and cerebral infarction without residual deficits; Z85.46 Personal history of malignant neoplasm of prostate; Z85.038 Personal history of other malignant neoplasm of large intestine; Z85.528 Personal history of other malignant neoplasm of kidney; Z90.5 Acquired absence of kidney; Z95.1 Presence of aortocoronary bypass graft; Z79.02 Long term (current) use of antithrombotics/antiplatelets
CPT/HCPCS: 71020; 80048; 81003; 82010; 82803; 83605; 84484; 85025; 85610; 85730; 93005; 99281; 99285; J7030

== ENCOUNTER 2017-02-25 08:17 | Emergency (ER) | payer OTHER ==
[~2017-02-25] VITALS: Ht 182.9 cm; Wt 73.0 kg
[2017-02-25 08:58] LABS: ADD MIUA? YES; BILIRUBIN NEGATIVE; BLOOD NEGATIVE; COLOR YELLOW ((YELLOW)); GLUCOSE (STRIP) NEGATIVE; KETONES NEGATIVE; LEUKOCYTES NEGATIVE; NITRITE NEGATIVE; PROTEIN (STRIP) >=500; SPECIFIC GRAVITY 1.011 (1.000-1.030); UROBILINOGEN 0.2 MG/DL (0.2-1.0)
[2017-02-25 09:03] LABS: BACTERIA NONE SEEN /HPF; EPITHELIAL CELLS NONE SEEN /HPF; HYALINE CASTS 0-5 /LPF; MUCUS NONE SEEN /LPF; WHITE BLOOD CELLS 0-5 /HPF (0-5)
[2017-02-25 09:29] LABS: HEMATOCRIT 43.2 % (38.0-50.0); MCH 28.2 PG (29.0-34.0); MCHC 31.7 G/DL (30.0-36.0); MCV 89.1 FL (86-99); MEAN PLAT.VOLUME 8.9 uM^3 (9.0-12.4); PLATELET COUNT 156 K/uL (156-360); RBC DIS.WIDTH-CV 14.9 % (11.8-14.6); RBC DIS.WIDTH-SD 48.8 % (39-53); RED BLOOD COUNT 4.85 M/uL (4.00-5.50); WHITE BLOOD COUNT 7.4 K/uL (4.1-10.2)
[2017-02-25 09:37] LABS: CHLORIDE 101 mEq/L (99-109); POTASSIUM 4.8 mEq/L (3.7-5.4); SODIUM 140 mEq/L (136-147)
[2017-02-25 09:39] LABS: GLUCOSE 185 mg/dL (70-99)
[2017-02-25 09:40] LABS: ANION GAP 8 MEQ/L (2-14)
[2017-02-25 09:41] LABS: TOTAL BILIRUBIN 0.5 mg/dL (0.0-1.0)
[2017-02-25 09:42] LABS: ALKALINE PHOSPHATASE 84 IU/L (3-129)
[2017-02-25 09:43] LABS: GFR ESTIMATE (CALCULATED) > 59 mL/min/
[2017-02-25 09:44] LABS: UREA NITROGEN (BUN) 25 mg/dL (9-23)
[2017-02-25 12:14] VITALS: BP 147/107
== END 2017-02-25 12:15 | disposition home or self-care (01) ==
LOC: EME 08:17
PROVIDERS: Physician Assistant
DX: M25.512 Pain in left shoulder (principal); M25.562 Pain in left knee; S80.212A Abrasion, left knee, initial encounter; W18.30XA Fall on same level, unspecified, initial encounter; Y92.190 Kitchen in other specified residential institution as the place of occurrence of the external cause; I11.0 Hypertensive heart disease with heart failure; I50.9 Heart failure, unspecified; I25.2 Old myocardial infarction; K21.9 Gastro-esophageal reflux disease without esophagitis; J44.9 Chronic obstructive pulmonary disease, unspecified; E78.5 Hyperlipidemia, unspecified; E11.9 Type 2 diabetes mellitus without complications; F41.9 Anxiety disorder, unspecified; F32.9 Major depressive disorder, single episode, unspecified; Z86.73 Personal history of transient ischemic attack (TIA), and cerebral infarction without residual deficits; Z85.528 Personal history of other malignant neoplasm of kidney; Z85.038 Personal history of other malignant neoplasm of large intestine; Z85.46 Personal history of malignant neoplasm of prostate; Z95.1 Presence of aortocoronary bypass graft; Z79.82 Long term (current) use of aspirin
CPT/HCPCS: 70450; 73030; 80053; 81003; 85027; 99281; 99285

== ENCOUNTER 2017-03-29 05:17 | Inpatient (IN) | payer OTHER ==
[~2017-03-29] VITALS: Ht 182.9 cm; Wt 111.0 kg
[~2017-03-29 05:17] MED LIST changes: +PRAVASTATIN SOD40 MG PO; +REQUIP4 MG PO
[2017-03-29 05:59] LABS: INTER. NORMALIZED RATIO 1.2
[2017-03-29 06:02] LABS: ALBUMIN 3.1 g/dL (3.2-4.8); CHLORIDE 101 mEq/L (99-109); POTASSIUM 4.5 mEq/L (3.7-5.4); PTT 31.9 SEC (25-37); SODIUM 139 mEq/L (136-147)
[2017-03-29 06:05] LABS: GLUCOSE 212 mg/dL (70-99); TOTAL PROTEIN 7.6 g/dL (6.4-8.3)
[2017-03-29 06:07] LABS: TOTAL BILIRUBIN 0.5 mg/dL (0.0-1.0)
[2017-03-29 06:08] LABS: ALKALINE PHOSPHATASE 124 IU/L (3-129); CREATININE 1.3 mg/dL (0.6-1.3); GFR ESTIMATE (CALCULATED) 59 mL/min/ (58.99-99999)
[2017-03-29 06:09] LABS: UREA NITROGEN (BUN) 22 mg/dL (9-23)
[2017-03-29 06:10] LABS: AST (GOT) 23 IU/L (2-34)
[2017-03-29 06:11] LABS: ALT (GPT) 22 IU/L (3-49)
[2017-03-29 06:12] LABS: LIPASE 40 U/L (1.0-51.0)
[2017-03-29 06:18] LABS: TROP-I INTERPRETATION NEGATIVE; TROPONIN-I 0.01 ng/mL (0.0-0.30)
[2017-03-29 06:55] LABS: Estimated Average Glucose 209 mg/dL (70-123); HEMOGLOBIN A1c (GLYCOHEMOGLOB) 8.9 % HGB (Below 5.7)
[2017-03-29 07:00] LABS: HDL CHOLESTEROL 36 MG/DL (Desirable>=40); LDL CHOLESTEROL 69 mg/dL (Desirable<100); NON-HDL CHOLESTEROL 105 mg/dL (Desirable<160); TOTAL CHOLESTEROL 141 mg/dL (Desirable<200); TRIGLYCERIDES 182 MG/DL (Normal: <150)
[2017-03-29] MEDS ORDERED: PENTOXIFYLLINE400 MG PO (09:38)
[2017-03-29] MEDS ORDERED: GABAPENTIN300 MG PO (09:39)
[2017-03-29 10:10] VITALS: BP 184/86
[2017-03-29 19:28] VITALS: BP 153/69
[2017-03-29 23:32] VITALS: BP 116/62
[2017-03-30 04:11] VITALS: BP 124/60
[2017-03-30 08:00] VITALS: BP 164/78
[2017-03-30 11:30] VITALS: BP 156/72
[2017-03-30 14:35] VITALS: BP 184/82
[2017-03-30 19:12] VITALS: BP 136/93
[2017-03-30 23:38] VITALS: BP 161/77
[2017-03-31 03:12] VITALS: BP 152/75
[2017-03-31 07:54] VITALS: BP 163/84
[2017-03-31 10:47] LABS: BASOPHIL (%) 0.5 % (0-1); EOSINOPHIL (%) 0.9 % (0-5); EOSINOPHIL COUNT 0.1 K/uL (0-0.3); HEMOGLOBIN 10.9 G/DL (12.5-16.6); IMMATURE GRANULOCYTE (%) 0.4 % (0.0-0.7); LYMPHOCYTE (%) 27.2 % (15-42); MCH 26.8 PG (29.0-34.0); MCHC 30.3 G/DL (30.0-36.0); MCV 88.5 FL (86-99); MONOCYTE (%) 10.4 % (3-12); MONOCYTE COUNT 0.8 K/uL (0-0.8); NEUTROPHIL (%) 60.6 % (45-76); NEUTROPHIL COUNT 4.5 K/uL (1.8-6.4); PLATELET COUNT 160 K/uL (156-360); RBC DIS.WIDTH-CV 14.8 % (11.8-14.6); RBC DIS.WIDTH-SD 47.8 % (39-53); RED BLOOD COUNT 4.07 M/uL (4.00-5.50); WHITE BLOOD COUNT 7.4 K/uL (4.1-10.2)
[2017-03-31 11:08] LABS: CHLORIDE 101 MEQ/L (99-109); POTASSIUM 4.1 MEQ/L (3.7-5.4); SODIUM 139 MEQ/L (136-147)
[2017-03-31 11:13] LABS: CREATININE 0.9 MG/DL (0.6-1.3); GFR ESTIMATE (CALCULATED) > 59 mL/min/ (58.99-99999); GLUCOSE 223 mg/dL (70-99); UREA NITROGEN (BUN) 22 mg/dL (9-23)
[2017-03-31 11:44] VITALS: BP 180/94
[2017-03-31 16:00] VITALS: BP 165/78
[2017-03-31 19:45] VITALS: BP 137/67
[2017-03-31 23:35] VITALS: BP 161/76
[2017-04-01 03:07] VITALS: BP 147/77
[2017-04-01 06:57] LABS: HDL CHOLESTEROL 25 MG/DL (Desirable>=40); LDL CHOLESTEROL 50 mg/dL (Desirable<100); NON-HDL CHOLESTEROL 79 mg/dL (Desirable<160); TOTAL CHOLESTEROL 104 mg/dL (Desirable<200); TRIGLYCERIDES 146 MG/DL (Normal: <150)
[2017-04-01 07:14] VITALS: BP 164/81
[2017-04-01 15:02] VITALS: BP 133/60
[2017-04-01 19:25] VITALS: BP 118/76
[2017-04-02] VITALS: BP 183/90
[2017-04-02 06:57] VITALS: BP 173/79
[2017-04-02 15:08] VITALS: BP 141/67
[2017-04-03 00:25] VITALS: BP 151/64
[2017-04-03 07:03] VITALS: BP 172/78
[2017-04-03] MEDS ORDERED: ATORVASTATIN CA40 MG PO (14:02)
[2017-04-03] MEDS ORDERED: ELIQUIS5 MG PO (14:03)
[2017-04-03] MEDS ORDERED: NOVOLOG PE100 UNITS/ SC (14:05)
[2017-04-03 15:16] VITALS: BP 152/70
== END 2017-04-03 16:40 | DRG 65 ==
LOC: EME 05:17 → EDOF 07:15 → 5WEST 07:15 → EDOF 07:15 → ENRESERV 07:17 → EDOF 07:28 → ENRESERV 07:31 → 5WEST 09:42 → ENRESERV 03-30 11:12 → 5SOUTH 03-30 11:46 → 5WEST 03-30 11:46 → 5SOUTH 03-30 13:57
PROVIDERS: Emergency Medicine; Hospitalist; Student in an Organized Health Care Education/Training Program
DX: I63.9 Cerebral infarction, unspecified (principal); R29.706 NIHSS score 6; I48.0 Paroxysmal atrial fibrillation; I11.0 Hypertensive heart disease with heart failure; I50.9 Heart failure, unspecified; E11.65 Type 2 diabetes mellitus with hyperglycemia; R27.0 Ataxia, unspecified; E78.5 Hyperlipidemia, unspecified; G47.33 Obstructive sleep apnea (adult) (pediatric); I87.8 Other specified disorders of veins; L97.919 Non-pressure chronic ulcer of unspecified part of right lower leg with unspecified severity; L97.929 Non-pressure chronic ulcer of unspecified part of left lower leg with unspecified severity; I71.2 Thoracic aortic aneurysm, without rupture; S30.92XA Unspecified superficial injury of abdominal wall, initial encounter; S70.921A Unspecified superficial injury of right thigh, initial encounter; X58.XXXA Exposure to other specified factors, initial encounter; G89.29 Other chronic pain; I25.10 Atherosclerotic heart disease of native coronary artery without angina pectoris; I25.2 Old myocardial infarction; J43.9 Emphysema, unspecified; K21.9 Gastro-esophageal reflux disease without esophagitis; M16.0 Bilateral primary osteoarthritis of hip; M25.512 Pain in left shoulder; F32.9 Major depressive disorder, single episode, unspecified; F41.9 Anxiety disorder, unspecified; E66.9 Obesity, unspecified; Z68.33 Body mass index [BMI] 33.0-33.9, adult; Z79.4 Long term (current) use of insulin; Z79.82 Long term (current) use of aspirin; Z82.49 Family history of ischemic heart disease and other diseases of the circulatory system; Z85.038 Personal history of other malignant neoplasm of large intestine; Z85.46 Personal history of malignant neoplasm of prostate; Z85.528 Personal history of other malignant neoplasm of kidney; Z86.73 Personal history of transient ischemic attack (TIA), and cerebral infarction without residual deficits; Z91.14 Patient's other noncompliance with medication regimen; Z95.1 Presence of aortocoronary bypass graft; Z95.5 Presence of coronary angioplasty implant and graft
CPT/HCPCS: 70450; 70496; 70498; 71010; 72125; 73030; 73502; 80048; 80053; 80061; 82948; 83036; 83690; 83880; 84484; 85025; 85027; 85610; 85730; 93005; 97530 GO; 97530 GP; 99281; 99285; A6260; G0378; G8987 CK; G8988 GO CJ; J1815; J2270

== ENCOUNTER → 2017-05-11 | Outpatient (CLI) | payer OTHER ==
[~2017-05-11] MED LIST changes: +ATORVASTATIN CA40 MG PO; +GABAPENTIN300 MG PO; +PENTOXIFYLLINE400 MG PO
== END ==
LOC: RAD 16:00
DX: M25.462 Effusion, left knee (principal); I70.90 Unspecified atherosclerosis; M79.89 Other specified soft tissue disorders
CPT/HCPCS: 73700

== ENCOUNTER → 2017-08-02 | Outpatient (CLI) | payer OTHER | END | disposition home or self-care (01) | LOC: RAD 10:23 | DX: K76.0 Fatty (change of) liver, not elsewhere classified (principal); I09.89 Other specified rheumatic heart diseases; Z90.5 Acquired absence of kidney; Z85.528 Personal history of other malignant neoplasm of kidney; Z85.038 Personal history of other malignant neoplasm of large intestine; Z85.46 Personal history of malignant neoplasm of prostate; Z90.49 Acquired absence of other specified parts of digestive tract | CPT/HCPCS: 74177 ==